=== PATIENT | male | born 1950 | race Caucasian/White ===

== ENCOUNTER 2023-03-18 20:47 | Observation (INO) | payer OTHER ==
[~2023-03-18] VITALS: Ht 190.5 cm; Wt 93.9 kg
[2023-03-18 21:02] LABS: BASOPHILS # (AUTO) 0.1 10^3/uL (0.0-0.1); BASOPHILS % (AUTO) 1 % (0-10); EOSINOPHILS # (AUTO) 0.4 10^3/uL (0.0-0.3); EOSINOPHILS % (AUTO) 4 % (0-10); HEMATOCRIT 40 % (40-54); HEMOGLOBIN 13.3 g/dL (13.3-17.7); LYMPHOCYTES # (AUTO) 2.4 10^3/uL (1.0-4.0); LYMPHOCYTES % (AUTO) 27 % (12-44); MEAN CORPUSCULAR HEMOGLOBIN 31 pg (25-34); MEAN CORPUSCULAR HGB CONC 33 g/dL (32-36); MEAN CORPUSCULAR VOLUME 94 fL (80-99); MEAN PLATELET VOLUME 9.7 fL (9.0-12.2); MONOCYTES # (AUTO) 0.5 10^3/uL (0.0-1.0); MONOCYTES % (AUTO) 6 % (0-12); NEUTROPHILS # (AUTO) 5.5 10^3/uL (1.8-7.8); NEUTROPHILS % (AUTO) 62 % (42-75); PLATELET COUNT 221 10^3/uL (130-400)
[2023-03-18 21:13] LABS: CHLORIDE 102 MMOL/L (98-107); POTASSIUM 4.3 MMOL/L (3.6-5.0); PROTHROMBIN TIME PATIENT 13.3 SEC (12.2-14.7); SODIUM 134 MMOL/L (135-145)
[2023-03-18 21:14] LABS: CALCIUM 8.7 MG/DL (8.5-10.1); PARTIAL THROMBOPLASTIN TIME 30 SEC (24-35)
[2023-03-18 21:15] LABS: GLUCOSE 196 MG/DL (70-105); TOTAL PROTEIN 6.8 GM/DL (6.4-8.2)
[2023-03-18 21:16] LABS: CARBON DIOXIDE 25 MMOL/L (21-32)
[2023-03-18 21:17] LABS: BILIRUBIN,TOTAL 0.5 MG/DL (0.1-1.0)
[2023-03-18 21:19] LABS: ALKALINE PHOSPHATASE 65 U/L (40-136); CREATININE SERUM 1.33 MG/DL (0.60-1.30); GFR ESTIMATED 56
[2023-03-18 21:20] LABS: BUN/CREATININE RATIO 14; FIBRIN DEGRADATION PRODUCTS < 0.27 UG/ML (0.00-0.49)
[2023-03-18 21:22] LABS: ALANINE AMINOTRANSFERASE 13 U/L (0-55); MAGNESIUM 1.9 MG/DL (1.6-2.4)
--- NOTE | 2023-03-18 21:23 | Diagnostic Imaging Report ---
PROCEDURE: CT head wo r/o stroke. TECHNIQUE: Multiple contiguous axial images were obtained through the brain without the use of intravenous contrast. Auto Exposure Controls were utilized during the CT exam to meet ALARA standards for radiation dose reduction. INDICATION: 72-year-old male presents to the Emergency Room with strokelike symptoms including slurred speech and facial droop. COMPARISONS: None FINDINGS: Midline structures are not displaced. Lateral, 3rd, and 4th ventricles are normal in size, shape and anatomic position. There is no mass, mass effect, hydrocephalus or hemorrhage. Ward-white differentiation is normal. There is no sulcal effacement. There are no abnormal extra-axial fluid collections or hemorrhage. Basilar cisterns appear normal. Sinuses, orbits and mastoid air cells are normal. Bone windows showed no calvarial changes. IMPRESSION: Unremarkable nonenhanced CT brain. Dictated by: Dictated on workstation # [id number]
--- NOTE | 2023-03-18 21:24 | Diagnostic Imaging Report ---
INDICATION: Strokelike symptoms. COMPARISON: None. FINDINGS: Single view of the chest shows normal heart, pleura and diaphragms. Some background chronic parenchymal changes are seen. No consolidation is seen. There is no effusion or pneumothorax. IMPRESSION: Chronic parenchymal changes but no acute cardiopulmonary disease. Dictated by: Dictated on workstation # [id number]
--- NOTE | 2023-03-18 21:38 | ED Neurological Problem ---
General Chief Complaint: Neuro-Stroke Like Symptoms Stated Complaint: SLURRED SPEECH, DROOPY FACE Nursing Triage Note: TO ED VIA POV AND AMBULATORY TO ROOM 5. PT C/O LEFT SIDE HEADACHE SINCE [id number] TODAY. PER GRANDDAUGHTER SHE NOTICIED "DROOPY FACE AND SLUMPING OVER" WHEN SHE GOT HOME FROM WORK AT APPROX 1830. STATES SOMETIME AROUND 1400 TODAY HE WAS HAVING TROUBLE REMEMBERING THE NAMES OF THEIR CHILDREN. PT IS ALERT AND ORIENTED ON ARRIVAL. PT DOES SEEM TO HAVE TROUBLE FINDING THE WORDS FOR THINGS. PT IS VERY [place]. PT ALERT TO NAME, , KNOWS TOMORROW IS THANKSGIVING, DOES HAVE TROUBLE STATING THE YEAR. HX DM, HTN. [facility] [place] [place]. Source: spouse Exam Limitations: other (PT UNABLE TO GIVE ANY RELIABLE INFORMATION ABOUT CURRENT SYMPTOMS) History of Present Illness Date Seen by Provider: Mar 18, 2023 Time Seen by Provider: 20:50 Initial Comments PT ARRIVES VIA POV FROM HOME WITH AND MULTIPLE FAMILY MEMBERS PT WALKS IN ON HIS OWN WITHOUT DIFFICULTY PT STATES HE HAD LEFT SIDED HEADACHE SINCE AROUND 10 AM TODAY STATES SHE NOTICED AROUND 1400 TODAY, THAT PT WAS CONFUSED AND COULDN'T REMEMBER ANY OF THEIR CHILDREN'S OR GRANDCHILDREN'S NAMES GRAND DAUGHTER GOT HOME FROM WORK TONIGHT AT 1830, AND NOTICED THAT THE RIGHT SIDE OF HIS FACE LOOKED "DROOPY" AND THAT HE WAS "SLUMPING OVER" TO THE RIGHT STATES HE HAS NOT HAD ANY SLURRED SPEECH AT ANY TIME TODAY, AND SHE STATES THAT HE HAS NOT HAD ANY PROBLEMS WALKING TODAY STATES HE HAS NOT BEEN SICK IN ANY WAY RECENTLY PT DENIES CHANGES IN VISION DENIES DIZZINESS DENIES CHEST PAIN OR SHORTNESS OF BREATH DENIES NAUSEA/VOMITING DENIES NUMBNESS OR TINGLING ANYWHERE PT IS DIABETIC AND HAS HTN HE HAS TAKEN HIS MEDICATIONS TODAY TOOK TYLENOL EARLIER TODAY FOR HIS HEADACHE HE IS NOT ON ASPIRIN OR BLOOD THINNERS NO HISTORY OF HEART DISEASE OR STROKES/TIA'S PCP: [facility] IN [facility] Allergies and Home Medications Allergies Coded Allergies: No Known Drug Allergies (Unverified , 03/18/23) Patient Home Medication List Home Medication List Reviewed: Yes Review of Systems Review of Systems Constitutional: no symptoms reported Eyes: No Symptoms Reported Ears, Nose, Mouth, Throat: see HPI Respiratory: no symptoms reported Cardiovascular: no symptoms reported Gastrointestinal: no symptoms reported Genitourinary: no symptoms reported Musculoskeletal: no symptoms reported Skin: no symptoms reported Psychiatric/Neurological: See HPI Endocrine: No Symptoms Reported Hematologic/Lymphatic: No Symptoms Reported Past [id number]-[id number]-Wemxfr Hx Patient Social History Tobacco Use?: Yes Smoking Status: Former Smoker Smokeless Tobacco Frequency: Current Everyday User Substance use?: No Alcohol Use?: No Immunizations Up To Date Influenza Vaccine Up-to-Date: No; Not Current Past Medical History Surgeries: No Respiratory: No Cardiac: Yes Hypertension Neurological: No Genitourinary: No Gastrointestinal: No Musculoskeletal: No Endocrine: Yes Diabetes, Non-Insulin dep HEENT: No Hearing Impairment: Hard of Hearing Cancer: No Psychosocial: No Integumentary: No Blood Disorders: No Physical Exam Vital Signs Vital Signs - First Documented 03/18/23 20:48 Temp 36.9 Pulse 93 Resp 16 B/P (MAP) 147/90 (109) Pulse Ox 97 O2 Delivery Room Air Capillary Refill : Less Than 3 Seconds Height, Weight, BMI Height: '" Weight: lbs. oz. kg; 29.00 BMI Method: General Appearance: WD/WN, no apparent distress HEENT: PERRL/EOMI, normal ENT inspection, TMs normal, pharynx normal Neck: non-tender, full range of motion, supple, normal inspection Respiratory: normal breath sounds, no respiratory distress, no accessory muscle use Cardiovascular: regular rate, rhythm, no murmur Peripheral Pulses: 2+ Dorsalis Pedis (R), 2+ Left Dors-Pedis (L), 2+ Radial Pulses (R), 2+ Radial Pulses (L) Gastrointestinal: normal bowel sounds, non tender, soft Back: normal inspection Extremities: normal inspection, normal capillary refill Neurologic/Psychiatric: ldr nurse II-XII nml as tested, no motor/sensory deficits, alert, normal mood/affect, oriented x 3, other (PT DOES SEEM SOMEWHAT CONFUSED TO SITUATION, AND CONTINUES TO HAVE PROBLEMS WITH WORD FINDING, AND UNABLE TO STATE NAMES OF FAMILY) Crainal Nerves: normal speech, PERRL, other (HARD OF HEARING; SPEECH IS CLEAR) Coordination/Gait: normal finger to nose, normal gait, negative Romberg's sign Motor/Sensory: no motor deficit, no sensory deficit, no pronator drift Reflexes: 1+ Knee (R), 1+ Knee (L) Skin: normal color, warm/dry Stroke Onset of Symptoms Onset of Symptoms: No Symptoms onset unknown: Yes NIH Stroke Scale Assessment Level of Consciousness: 0=Alert (0), Level of Consciousness-Questions: 0=Answers both month/age (0), LOC Commands: 0=Performs both tasks (0), Visual Vega: 0=No visual loss (0), Facial Movement (Facial Paresis): 0=Normal symmetrical mnt (0), Motor Function-Arms Right: 0=No drift (0), Motor Function-Arms Left: 0=No drift (0), Motor Function-Legs Right: 0=No drift (0), Motor Function-Legs Left: 0=No drift (0), Limb Ataxia: 0=Absent (0), Sensory: 0=Normal:no loss (0), Best Language: 0=No aphasia (0), Dysarthria: 0=Normal (0), Extinction & Inattention: 0=No abnormality (0), Total: 0 Stroke Thrombolytic Exclusion Age 18 or Over: Yes Acute intenal hemorrhage: No History of CVA: No Uncontrolled Coagulation Defec: No Intracranial Hemorrhage: No Severe Hypertension: No GI or Bleed: No Subarachnoid Hemorrhage: No Intracranial Neoplasm/Aneurysm: No Oral Anticoagulants: No Surgery or Trauma: No Puncture of Non-Compressible V: No Recent CPR: No Diabetic Hemorrhagic Retinopat: No Organ Biopsy: No Recent Obstetric Delivery: No Glucose: No Significant Hepatic Dysfunctio: No NIH Stoke Scale >22: No Bacterial Endocarditis: No Pericarditis: No Improving Symptoms: No Platelets: No TPA Contraindication: No IV - TPa Received IV - TPa Procedure Performed?: No (NIH IS 0, ONSET OF SYMPTOMS IS INDETERMINATE, BUT AT LEAST > 6 HOURS) Progress/Results/Core Measures Results/Orders Lab Results Laboratory Tests Test 03/18/23 20:54 03/18/23 20:55 03/18/23 21:26 03/18/23 22:19 Range/Units Glucometer 191 H 70-110 MG/DL White Blood Count 9.0 4.3-11.0 10^3/uL Red Blood Count 4.25 L 4.30-5.52 10^6/uL Hemoglobin 13.3 13.3-17.7 g/dL Hematocrit 40 40-54 % Mean Corpuscular Volume 94 80-99 fL Mean Corpuscular Hemoglobin 31 25-34 pg Mean Corpuscular Hemoglobin Concent 33 32-36 g/dL Red Cell Distribution Width 12.4 10.0-14.5 % Platelet Count 221 130-400 10^3/uL Mean Platelet Volume 9.7 9.0-12.2 fL Immature Granulocyte % (Auto) 0 % Neutrophils (%) (Auto) 62 42-75 % Lymphocytes (%) (Auto) 27 12-44 % Monocytes (%) (Auto) 6 0-12 % Eosinophils (%) (Auto) 4 0-10 % Basophils (%) (Auto) 1 0-10 % Neutrophils # (Auto) 5.5 1.8-7.8 10^3/uL Lymphocytes # (Auto) 2.4 1.0-4.0 10^3/uL Monocytes # (Auto) 0.5 0.0-1.0 10^3/uL Eosinophils # (Auto) 0.4 H 0.0-0.3 10^3/uL Basophils # (Auto) 0.1 0.0-0.1 10^3/uL Immature Granulocyte # (Auto) 0.0 0.0-0.1 10^3/uL Prothrombin Time 13.3 12.2-14.7 SEC INR Comment 1.0 0.8-1.4 Activated Partial Thromboplast Time 30 24-35 SEC D-Dimer < 0.27 0.00-0.49 UG/ML Sodium Level 134 L 135-145 MMOL/L Potassium Level 4.3 3.6-5.0 MMOL/L Chloride Level 102 98-107 MMOL/L Carbon Dioxide Level 25 21-32 MMOL/L Anion Gap 7 5-14 MMOL/L Blood Urea Nitrogen 19 H 7-18 MG/DL Creatinine 1.33 H 0.60-1.30 MG/DL Estimat Glomerular Filtration Rate 56 BUN/Creatinine Ratio 14 Glucose Level 196 H 70-105 MG/DL Calcium Level 8.7 8.5-10.1 MG/DL Corrected Calcium 8.7 8.5-10.1 MG/DL Magnesium Level 1.9 1.6-2.4 MG/DL Total Bilirubin 0.5 0.1-1.0 MG/DL Aspartate Amino Transf (AST/SGOT) 17 5-34 U/L Alanine Aminotransferase (ALT/SGPT) 13 0-55 U/L Alkaline Phosphatase 65 40-136 U/L Troponin I < 0.028 <0.028 NG/ML Total Protein 6.8 6.4-8.2 GM/DL Albumin 4.0 3.2-4.5 GM/DL Urine Color YELLOW Urine Clarity CLEAR Urine pH 7.0 5-9 Urine Specific [place] 1.015 L 1.016-1.022 Urine Protein NEGATIVE NEGATIVE Urine Glucose (UA) 3+ H NEGATIVE Urine Ketones TRACE H NEGATIVE Urine Nitrite NEGATIVE NEGATIVE Urine Bilirubin NEGATIVE NEGATIVE Urine Urobilinogen 0.2 < = 1.0 MG/DL Urine Leukocyte Esterase NEGATIVE NEGATIVE Urine RBC (Auto) NEGATIVE NEGATIVE Urine RBC NONE /HPF Urine WBC RARE /HPF Urine Squamous Epithelial Cells NONE /HPF Urine Crystals NONE /LPF Urine Bacteria TRACE /HPF Urine Casts NONE /LPF Urine Mucus NEGATIVE /LPF Urine Culture Indicated NO Serum Alcohol < 10 <10 MG/DL My Orders Orders - RICH ALEXANDER DO Monitor-Rhythm Ecg Trace Only (03/18/23 20:50) Cbc And Automated Diff (03/18/23 20:50) Protime With Inr (03/18/23 20:50) Partial Thromboplastin Time (03/18/23 20:50) Comprehensive Metabolic Panel (03/18/23 20:50) Fibrin Degradation Products (03/18/23 20:50) Troponin I [place]min[place] (03/18/23 20:50) Ua Culture If Indicated (03/18/23 20:50) Chest 1 View, Ap/Pa Only (03/18/23 20:50) Ekg Tracing (03/18/23 20:50) Nothing By Mouth (03/19/23 Breakfast) Accucheck Stat ONCE (03/18/23 20:50) Ed Iv/Invasive Line Start (03/18/23 20:50) Ed Iv/Invasive Line Start (03/18/23 20:50) Vital Signs Stroke Patient Q15M (03/18/23 20:50) Ct Head Wo-R/O Stroke (03/18/23 20:50) O2 (03/18/23 20:50) Dysphagia Screening Tool Q10MX1 (03/18/23 20:50) Magnesium (03/18/23 20:50) End Tidal Co2 (03/18/23 21:20) Ct Angio Head/Neck (03/18/23 21:38) Ct Head Perfusion W/ Contrast (03/18/23 21:38) Ed Iv/Invasive Line Start (03/18/23 21:38) Ns Iv 1000 Ml (Ns Iv 1000 Ml) (03/18/23 21:45) Alcohol (03/18/23 22:14) Iohexol Injection (Omnipaque 350 Mg/Ml 1 (03/18/23 23:15) Received Contrast (Hold Metformin- Contr (03/18/23 23:15) Sodium Chloride Flush (Catheter Flush Sy (03/18/23 23:15) Ns (Ivpb) 250 Ml (Sodium Chloride 0.9% 2 (03/18/23 23:15) Medications Given in ED Current Medications Medications Dose Ordered Sig/Patricia Route Start Time Stop Time Status Last Admin Dose Admin Iohexol 150 ml ONCE ONCE IV 03/18/23 23:15 03/18/23 23:16 DC 03/18/23 23:08 120 ML Sodium Chloride 10 ml NEEDED PRN IV 03/18/23 23:15 03/18/23 23:09 10 ML Sodium Chloride 250 ml ONCE ONCE IV 03/18/23 23:15 03/18/23 23:16 DC 03/18/23 23:08 120 ML Vital Signs/I&O 03/18/23 03/18/23 03/19/23 20:48 20:48 00:29 Temp 36.9 36.9 Pulse 93 82 Resp 16 16 B/P (MAP) 147/90 (109) 115/52 Pulse Ox 97 94 O2 Delivery Room Air Room Air Room Air Blood Pressure Mean: 109 FSBG Bedside Testing Finger Stick Blood Glucose: 191 Blood Glucose Action Taken: dr alexander notified Progress Progress Note : Progress Note VITALS STABLE LABS: -CBC NORMAL -CMP WITH NA 134, BUN 19, CR 1.33, GLU 196 -MG NORMAL -TROPONIN NEGATIVE -PT/PTT/INR NORMAL -D-DIMER NEGATIVE -UA WITH 3+ GLUCOSE, TRACE KETONES CT SCANS UNREMARKABLE CXR UNREMARKABLE EKG WITH LBBB NO DETERIORATION IN PT'S CONDITION VITALS STABLE NO DETERIORATION OR IMPROVEMENT IN PT'S CONDITION. DISCUSSED TEST RESULTS, NEED FOR ADMIT AND PT AND FAMILY AGREE NO PRIOR VISITS HERE Initial ECG Impression Date: Mar 18, 2023 Initial ECG Impression Time: 20:59 Initial ECG Rate: 88 Initial ECG Rhythm: Normal Sinus (LBBB) Initial ECG Intervals CO 184 QRS 144 QT/QTC 393/438 Initial ECG Comparisson: No Previous ECG Available Comment INTERPRETED BY ME Diagnostic Imaging Comments CXR--PER RADIOLOGIST REPORT AT 2137 FINDINGS: Single view of the chest shows normal heart, pleura and diaphragms. Some background chronic parenchymal changes are seen. No consolidation is seen. There is no effusion or pneumothorax. IMPRESSION: Chronic parenchymal changes but no acute cardiopulmonary disease. CT HEAD--PER RADIOLOGIST REPORT AT 2137 FINDINGS: Midline structures are not displaced. Lateral, 3rd, and 4th ventricles are normal in size, shape and anatomic position. There is no mass, mass effect, hydrocephalus or hemorrhage. Ward-white differentiation is normal. There is no sulcal effacement. There are no abnormal extra-axial fluid collections or hemorrhage. Basilar cisterns appear normal. Sinuses, orbits and mastoid air cells are normal. Bone windows showed no calvarial changes. IMPRESSION: Unremarkable nonenhanced CT brain. CT ANGIOGRAM HEAD/NECK--PER [facility] VIA FAX AT 2322 AND VIA PHONE AT 2338 -NO LARGE VESSEL OCCLUSION OR ANEURYSM -NO ACUTE FINDINGS -NO SIGNIFICANT CAROTID STENOSIS CT BRAIN PERFUSION--PER [facility] VIA FAX AT 2336 AND VIA PHONE AT 2338 -NO ACUTE INFARCT Reviewed: Reviewed by Me, Discussed w/Radiologist Departure Communication (Admissions) 2340--SPOKE WITH DR. PEREZ, HOSPITALIST, ACCEPTS PT FOR ADMIT Impression Primary Impression: Stroke-like symptoms Additional Impressions: Confusion Word finding difficulty HTN (hypertension) Diabetes mellitus LBBB (left bundle branch block) Disposition: ADMITTED INPATIENT Condition: Stable Admissions Decision to Admit Reason: Admit from ER (General) Decision to Admit/Date: Mar 18, 2023 Time/Decision to Admit Time: 23:45 RICH ALEXANDER DO Mar 18, 2023 21:38
[2023-03-18 21:45] LABS: BACTERIA,URINE TRACE /HPF; BILIRUBIN,URINE NEGATIVE (NEGATIVE); CLARITY,URINE CLEAR; COLOR,URINE YELLOW; GLUCOSE, URINE (UA) 3+ (NEGATIVE); KETONES,URINE TRACE (NEGATIVE); LEUKOCYTE ESTERASE ,URINE NEGATIVE (NEGATIVE); NITRITE,URINE NEGATIVE (NEGATIVE); PROTEIN,URINE NEGATIVE (NEGATIVE); WBC,URINE RARE /HPF
[2023-03-18] MEDS ORDERED: NS IV 1000 ML 1,000 ML IV SCH (21:45)
[2023-03-18] MEDS ORDERED: IOHEXOL 350 MG/ML 150 ML (OMNIPAQUE 350) VIAL IV ONE (23:15)
[2023-03-18] MEDS ORDERED: NS 250 ML (IVPB) BAG IV ONE (23:15)
[2023-03-18] MEDS ORDERED: HOLD METFORMIN - RECEIVED CONTRAST 20 ML VIAL IV SCH (23:15)
[2023-03-18] MEDS ORDERED: CATHETER FLUSH 10 ML SYR IV PRN (23:15)
[2023-03-19] VITALS (16 sets, daily range): BP systolic 99–126; BP diastolic 50–86
[2023-03-19] MEDS ORDERED: NS IV 1000 ML 1,000 ML IV SCH (01:30)
[2023-03-19 04:53] LABS: BASOPHILS # (AUTO) 0.1 10^3/uL (0.0-0.1); BASOPHILS % (AUTO) 1 % (0-10); EOSINOPHILS # (AUTO) 0.4 10^3/uL (0.0-0.3); EOSINOPHILS % (AUTO) 5 % (0-10); HEMATOCRIT 35 % (40-54); HEMOGLOBIN 11.8 g/dL (13.3-17.7); LYMPHOCYTES # (AUTO) 3.2 10^3/uL (1.0-4.0); LYMPHOCYTES % (AUTO) 37 % (12-44); MEAN CORPUSCULAR HEMOGLOBIN 32 pg (25-34); MEAN CORPUSCULAR HGB CONC 34 g/dL (32-36); MEAN CORPUSCULAR VOLUME 94 fL (80-99); MEAN PLATELET VOLUME 10.1 fL (9.0-12.2); MONOCYTES # (AUTO) 0.7 10^3/uL (0.0-1.0); MONOCYTES % (AUTO) 8 % (0-12); NEUTROPHILS # (AUTO) 4.2 10^3/uL (1.8-7.8); NEUTROPHILS % (AUTO) 49 % (42-75); PLATELET COUNT 205 10^3/uL (130-400); WHITE BLOOD COUNT 8.6 10^3/uL (4.3-11.0)
[2023-03-19 05:12] LABS: CALCIUM 8.2 MG/DL (8.5-10.1); CREATININE SERUM 1.16 MG/DL (0.60-1.30); POTASSIUM 4.3 MMOL/L (3.6-5.0)
[2023-03-19] MEDS: inSUlin ASPART 1 UNIT/0.01 ML (PER UNIT) SC SCH ×2 (05:14→11:49)
--- NOTE | 2023-03-19 06:58 | Diagnostic Imaging Report ---
CLINICAL INDICATIONS: The patient complains of left-sided headache since 10 to 11 AM yesterday. Granddaughter noticed patient had a "droopy face." EXAMS: 1: Head CT with contrast. CT angiogram of the head and neck performed with 100 cc of Omnipaque 350 IV contrast. Sagittal and coronal MIP reformations were created for better visualization of vascular anatomy. 2: CT perfusion of the brain. Multiple perfusion maps were obtained including relative CBV, relative CBF, MTT, and Tmax. CT angiogram was post-processed using RAPID LVO detection to include quantitative measurements of cerebral blood flow and automated results notification to the stroke and/or neurointerventional team. COMPARISON: Head CT without contrast dated 03/18/2023. FINDINGS: HEAD CT: There is stable appearance of the brain parenchyma with no interval evidence of acute intracranial process. There is no abnormal IV contrast enhancement. 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 The brain parenchymal volume appears appropriate for patient's age. There is normal rosa-white matter distinction. There is no hydrocephalus, brain herniation or midline shift. Basal cisterns are unremarkable. The extracranial soft tissue, skull, and orbits are unremarkable. There is mild mucosal thickening involving both maxillary sinuses and ethmoid sinus. Mastoid air cells are clear. CT ANGIOGRAM: There is dense contrast bolus seen within the left subclavian vein, innominate vein and superior vena cava. Three-vessel aortic arch is seen. The brachiocephalic artery and bilateral subclavian artery are patent. The right common carotid artery, right ECA and cervical right ICA are patent. There is atherosclerotic disease involving the distal left common carotid artery/bifurcation region with no significant stenosis. There is atherosclerotic disease involving the origin of the cervical left ICA bulb with roughly 40-50% stenosis. The remainder of the cervical left ICA is patent. The left ECA is patent. The petrous, cavernous, and supraclinoid ICA are patent. The bilateral ACAs and distal branches are patent. The bilateral MCAs and distal branches are patent. Dominant right cervical vertebral artery is seen. The bilateral cervical vertebral arteries are patent. The bilateral intradural vertebral arteries are patent. The bilateral PICAs are patent. The basilar artery, bilateral superior cerebellar arteries, and bilateral director paid media and distal branches are patent. The dural venous sinuses are patent. There are multiple small nonobstructive stones involving the right parotid gland. The visualized upper lung arceo are clear. There are small cervical spine vertebral body spurs. CT PERFUSION OF THE BRAIN: The multiple perfusion maps are relatively symmetric with no evidence of significant brain perfusion mismatch or other significant intracranial flow abnormality/ defect. There is note of roughly 32 mL of Tmax greater than 4 seconds involving the left parietal and occipital region. There is no parenchymal volume demonstrating rCBF greater than 30% or Tmax greater than 6 seconds. There is no vascular abnormality seen on the CTA in this region of the brain parenchyma. IMPRESSION: 1: There is no CT evidence of acute intracranial process. There is no abnormal IV contrast enhancement. 2: CT angiogram of the [place] and neck showed no enlarged vessel occlusion or intravascular thrombus. There is no aneurysm or vascular malformation. 3: There is roughly 40-50% stenosis involving the origin of the cervical left ICA. There is no significant vascular stenosis seen on this exam. 4: There is no significant brain perfusion mismatch seen on this CT brain perfusion portion of this exam. I agree with the [facility] report. The results of this report were called to Dr. Sotomayor on 03/18/2023 at 2330 by the [facility] radiologist. Dictated by: Dictated on workstation # [id number]
[2023-03-19] MEDS ORDERED: ASPIRIN enteric coated 81MG TABLET PO SCH (09:00)
--- NOTE | 2023-03-19 11:14 | Diagnostic Imaging Report ---
Clinical indications: Patient with stroke-like symptoms. The patient complains of left-sided headache. Granddaughter noticed "droopy face." The patient has left eye burning and a history of hypertension. Exam: MRI of the brain performed without IV contrast. Sequences include axial DWI, ADC map, axial T1, axial T2, axial FLAIR, coronal gradient echo, and sagittal T1. Comparison: CT angiogram of the head/neck dated 03/18/2023.. Findings: There is no evidence of acute cerebral infarct, intracranial hemorrhage, or gross mass effect. The brain parenchymal volume appears appropriate for patient's age. There are multiple focal areas of high T2 signal white matter changes involving both cerebral hemispheres. There is normal guajardo-white matter distinction. There is no significant midline shift or herniation. There is no evidence of hydrocephalus. The basal cisterns are unremarkable. The skull, extracranial soft tissue, and orbits are unremarkable. There is mild mucosal thickening involving both maxillary sinuses, frontal sinus, ethmoid sinus and sphenoid sinus. Temporal bones show no significant abnormality. IMPRESSION: 1: There is no evidence of acute intracranial process. 2: There is mild age-related brain parenchymal changes including mild chronic small vessel ischemic disease. 3: There is mild paranasal sinus disease. Dictated by: Dictated on workstation # [id number]
--- NOTE | 2023-03-19 13:11 | History & Physicial-Cardiolgy ---
HPI-Cardiology Cardiology Consultation: Date of Consultation 03/19/23 Date of Admission 03/18/2023 Attending Physician Adali,Local Physician Admitting Physician Admitting Physician: Ginna Lawler MD Attending Physician: Ginna Lawler MD Consulting Physician RAYMON CHAVEZ MD HPI: Time Seen by a Provider: 12:20 Chief Complaint: Admitted with complaining of mental status changes, mouth droop, left-sided headache. Patient was noted to have above symptoms yesterday. He was also unable to recall the names of his family members. Presently denies any complaints. Denies any history of heart problem other than hypertension Review of Systems-Cardiology Review of Systems Constitutional: no symptoms reported Eyes: no symptoms reported Ears/Nose/Throat: no symptoms reported Respiratory: no symptoms reported Cardiovascular: no symptoms reported Gastrointestinal: no symptoms reported Genitourinary: no symptoms reported Musculoskeletal: no symptoms reported Skin: no symptoms reported Psychiatric/Neurological: As described under HPI Hematologic: no symptoms reported GEA-Zwyhmq-[id number] Hx Patient Social History Smoking Status: Former Smoker Alcohol Use?: No Pt feels they are or have been: No Past Medical History PMH As described under Assessment. Allergies and Home Medications Allergies Coded Allergies: No Known Drug Allergies (Unverified , 03/18/23) Patient Home Medication List Home Medication List Reviewed: Yes Physical Exam-Cardiology Physical Exam Vital Signs/I&O 03/19/23 03/19/23 03/19/23 03/19/23 01:11 01:13 01:15 01:30 Temp 37.8 Pulse 88 88 87 92 Resp 17 21 20 B/P (MAP) 123/66 (85) 99/63 (75) 112/63 (79) Pulse Ox 93 94 93 O2 Delivery Room Air Room Air Room Air 03/19/23 03/19/23 03/19/23 03/19/23 01:45 02:00 02:15 02:30 Pulse 72 74 78 80 Resp 20 34 34 34 B/P (MAP) 108/50 (69) 119/52 (74) 117/55 (75) 119/51 (73) Pulse Ox 93 93 93 93 O2 Delivery Room Air Room Air Room Air Room Air 03/19/23 03/19/23 03/19/23 03/19/23 02:45 03:00 03:15 03:30 Pulse 80 75 84 75 Resp 34 34 34 34 B/P (MAP) 110/52 (71) 126/57 (80) 107/65 (79) 122/62 (82) Pulse Ox 92 90 91 90 O2 Delivery Room Air Room Air Room Air Room Air 03/19/23 03/19/23 03/19/23 03/19/23 03:45 04:00 04:10 07:00 Pulse 72 77 69 Resp 34 B/P (MAP) 123/66 (85) 114/66 (82) Pulse Ox 91 94 O2 Delivery Room Air Room Air Room Air 03/19/23 03/19/23 03/19/23 03/19/23 07:29 08:00 11:32 11:53 Temp 36.8 36.3 36.5 Pulse 71 53 126 Resp 15 16 22 B/P (MAP) 121/61 (81) 116/70 (85) 110/86 (94) Pulse Ox 91 97 98 O2 Delivery Room Air Room Air Room Air NIV Bilevel O2 Flow Rate 30.00 03/19/23 12:42 Pulse 54 03/18/23 23:59 Intake Total 1000 ml Balance 1000 ml Capillary Refill : Less Than 3 Seconds Constitutional: appears stated age, AAO x 3 HEENT: PERRL Neck: non-tender, supple Respiratory: chest expansion is symmetric, lungs clear to auscultation Cardiovascular: regular rate-rhythm, S1 and S2 Gastrointestinal: soft, round Rectal: deferred Extremities: normal range of motion, no lower extremity edema bilateral Neurologic/Psychiatric: alert, normal mood/affect, oriented x 3, facial droop (Right side of the mouth) Skin: normal color Lymphatic: no adenopathy Data Review Labs Laboratory Tests 03/18/23 20:54: Glucometer 191H 03/18/23 20:55: White Blood Count 9.0, Red Blood Count 4.25L, Hemoglobin 13.3, Hematocrit 40, Mean Corpuscular Volume 94, Mean Corpuscular Hemoglobin 31, Mean Corpuscular Hemoglobin Concent 33, Red Cell Distribution Width 12.4, Platelet Count 221, M obdulia Platelet Volume 9.7, Immature Granulocyte % (Auto) 0, Neutrophils (%) (Auto) 62, Lymphocytes (%) (Auto) 27, Monocytes (%) (Auto) 6, Eosinophils (%) (Auto) 4, Basophils (%) (Auto) 1, Neutrophils # (Auto) 5.5, Lymphocytes # (Auto) 2.4, Monocytes # (Auto) 0.5, Eosinophils # (Auto) 0.4H, Basophils # (Auto) 0.1, Immature Granulocyte # (Auto) 0.0, Prothrombin Time 13.3, INR Comment 1.0, Activated Partial Thromboplast Time 30, D-Dimer < 0.27, Sodium Level 134L, Potassium Level 4.3, Chloride Level 102, Carbon Dioxide Level 25, Anion Gap 7, Blood Urea Nitrogen 19H, Creatinine 1.33H, Estimat Glomerular Filtration Rate 56, BUN/Creatinine Ratio 14, Glucose Level 196H, Calcium Level 8.7, Corrected Calcium 8.7, Magnesium Level 1.9, Total Bilirubin 0.5, Aspartate Amino Transf (AST/SGOT) 17, Alanine Aminotransferase (ALT/SGPT) 13, Alkaline Phosphatase 65, Troponin I < 0.028, Total Protein 6.8, Albumin 4.0 03/18/23 21:26: Urine Color YELLOW, Urine Clarity CLEAR, Urine pH 7.0, Urine Specific [place] 1.015L, Urine Protein NEGATIVE, Urine Glucose (UA) 3+H, Urine Ketones TRACEH, Urine Nitrite NEGATIVE, Urine Bilirubin NEGATIVE, Urine Urobilinogen 0.2, Urine Leukocyte Esterase NEGATIVE, Urine RBC (Auto) NEGATIVE, Urine RBC NONE, Urine WBC RARE, Urine Squamous Epithelial Cells NONE, Urine Crystals NONE, Urine Bacteria TRACE, Urine Casts NONE, Urine Mucus NEGATIVE, Urine Culture Indicated NO 03/18/23 22:19: Serum Alcohol < 10 03/19/23 01:48: Glucometer 127H 03/19/23 04:45: White Blood Count 8.6, Red Blood Count 3.75L, Hemoglobin 11.8L, Hematocrit 35L, Mean Corpuscular Volume 94, Mean Corpuscular Hemoglobin 32, Mean Corpuscular Hemoglobin Concent 34, Red Cell Distribution Width 12.5, Platelet Count 205, Mean Platelet Volume 10.1, Immature Granulocyte % (Auto) 0, Neutrophils (%) (Auto) 49, Lymphocytes (%) (Auto) 37, Monocytes (%) (Auto) 8, Eosinophils (%) (Auto) 5, Basophils (%) (Auto) 1, Neutrophils # (Auto) 4.2, Lymphocytes # (Auto) 3.2, Monocytes # (Auto) 0.7, Eosinophils # (Auto) 0.4H, Basophils # (Auto) 0.1, Immature Granulocyte # (Auto) 0.0, Sodium Level 137, Potassium Level 4.3, Chloride Level 107, Carbon Dioxide Level 20L, Anion Gap 10, Blood Urea Nitrogen 15, Creatinine 1.16, Estimat Glomerular Filtration Rate 66, BUN/Creatinine Ratio 13, Glucose Level 128H, Calcium Level 8.2L 03/19/23 07:33: 03/19/23 11:30: Glucometer 187H Radiology Date of Exam:03/19/23 MRI BRAIN W/O CONTRAST Clinical indications: Patient with stroke-like symptoms. The patient complains of left-sided headache. Granddaughter noticed "droopy face." The patient has left eye burning and a history of hypertension. Exam: MRI of the brain performed without IV contrast. Sequences include axial DWI, ADC map, axial T1, axial T2, axial FLAIR, coronal gradient echo, and sagittal T1. Comparison: CT angiogram of the head/neck dated 03/18/2023.. Findings: There is no evidence of acute cerebral infarct, intracranial hemorrhage, or gross mass effect. The brain parenchymal volume appears appropriate for patient's age. There are multiple focal areas of high T2 signal white matter changes involving both cerebral hemispheres. There is normal guajardo-white matter distinction. There is no significant midline shift or herniation. There is no evidence of hydrocephalus. The basal cisterns are unremarkable. The skull, extracranial soft tissue, and orbits are unremarkable. There is mild mucosal thickening involving both maxillary sinuses, frontal sinus, ethmoid sinus and sphenoid sinus. Temporal bones show no significant abnormality. IMPRESSION: 1: There is no evidence of acute intracranial process. 2: There is mild age-related brain parenchymal changes including mild chronic small vessel ischemic disease. 3: There is mild paranasal sinus disease. A/P-Cardiology Assessment/Admission Diagnosis Mental status change. Hypertension Admission Status: Observation Plan Will check EKG, echo. Continue present medications Start statins Clinical Quality Measures Stroke: Symptoms onset unknown: Yes RAYMON CHAVEZ MD Mar 19, 2023 13:11
[2023-03-19] MEDS ORDERED: SIMV80TA21 PO (13:12)
[2023-03-19] MEDS ORDERED: EMPA25TA PO (13:12)
[2023-03-19] MEDS ORDERED: ASPI-1238 PO (13:12)
[2023-03-19] MEDS ORDERED: METF-399 PO (13:12)
[2023-03-19] MEDS ORDERED: ENAL-70 PO (13:12)
--- NOTE | 2023-03-19 20:12 | Short Stay Summary-Hospitalist ---
History of Present Illness HPI/Chief Complaint Kaci Baker is a 72 year old male with PMH HTN, T2DM, HLD, who was admitted with stroke like symptoms. He was having a headache. His family thought he had some facial droop. He was reportedly confused and having word finding difficulty. He was not having any weakness. Upon my exam, all his symptoms have resolved. He is no longer confused. He is not having any speech trouble. He denies swallowing trouble. He is not having any weakness. He denies chest pain and shortness of breath. He denies fevers. He denies abdominal pain. He takes aspirin and a statin. Source: patient Exam Limitations: no limitations Date Seen 03/19/23 Time Seen by a Provider: 12:15 Attending Physician No,Local Physician PCP Admitting Physician: Ginna Perez MD Attending Physician: Ginna Perez MD Referring Physician Date of Admission Mar 19, 2023 at 00:57 Home Medications & Allergies Home Medications Reviewed patient Home Medication Reconciliation performed by pharmacy medication reconciliations biological science technician fish and/or nursing. Patients Allergies have been reviewed. Allergies Allergies Coded Allergies No Known Drug Allergies (Diemfnjaws13/22/23) Past Cpzztkz-Gmxttq-Qjfpus Hx Patient Social History Tobacco Use?: Yes Smoking Status: Former Smoker Smokeless type used: Chew Smokeless Tobacco Frequency: Current Someday User Use of E-Cig and/or Vaping dev: No Substance use?: No Alcohol Use?: No Pt feels they are or have been: No Immunizations Up To Date Tetanus Booster (TDap): Unknown Hepatitis A: No Hepatitis B: No Current Status Advance Directives: No Communicates: Verbally Primary Language: [place] Preferred Spoken Language: [place] Is interpretation needed?: No Implanted or Applied Medical D: None Past Medical History Hypertension Diabetes, Non-Insulin dep Hearing Impairment: Hard of Hearing Blood Disorders: No Family Medical History No Pertinent Family Hx Review of Systems Constitutional: no symptoms reported Respiratory: no symptoms reported Cardiovascular: no symptoms reported Gastrointestinal: no symptoms reported Physical Exam Physical Exam Vital Signs Vital Signs - First Documented 03/18/23 03/19/23 20:48 11:53 Temp 36.9 Pulse 93 Resp 16 B/P (MAP) 147/90 (109) Pulse Ox 97 O2 Delivery Room Air O2 Flow Rate 30.00 Capillary Refill : Less Than 3 Seconds Height, Weight, BMI Height: '" Weight: lbs. oz. kg; 25.87 BMI Method: General Appearance: No Apparent Distress, WD/WN HEENT: PERRL/EOMI, Pharynx Normal Neck: Normal Inspection, Supple Respiratory: Lungs Clear, Normal Breath Sounds, No Respiratory Distress Cardiovascular: Regular Rate, Rhythm, No Edema, No Murmur Gastrointestinal: Normal Bowel Sounds, Non Tender, Soft Extremity: Normal Inspection, No Pedal Edema Neurologic/Psychiatric: Alert, Oriented x3, No Motor/Sensory Deficits, Normal Mood/Affect, pbx mechanic II-XII Norm as Tested Skin: Normal Color, Warm/Dry Results Results/Procedures Labs Laboratory Tests 03/18/23 20:55 03/19/23 04:45 Patient resulted labs reviewed. Imaging: Reviewed Imaging Report Short Stay Diagnosis Discharge Diagnosis-Short Stay Admission Diagnosis Stroke like symptoms Final Discharge Diagnosis Possible TIA Conclusion Plan Stroke like symptoms Possible TIA HTN T2DM HLD CT head negative MRI brain with no acute abnormalities CTA with mild carotid stenosis EKG with normal sinus rhythm, LBBB Echo unavailable, will complete outpatient Symptoms resolved Continue ASA and statin Follow up with your PCP at [facility] in about a week Diagnosis/Problems Diagnosis/Problems (1) Stroke-like symptoms Status: Acute (2) TIA (transient ischemic attack) Status: Acute (3) HTN (hypertension) Status: Acute (4) Diabetes mellitus Status: Acute (5) LBBB (left bundle branch block) Status: Acute Clinical Quality Measures Stroke: Symptoms onset unknown: Yes GINNA PEREZ MD Mar 19, 2023 20:12
== END 2023-03-19 13:30 | disposition home or self-care (01) ==
LOC: EDUNIT# 20:47 → ER 20:51 → CSD 03-19 00:57
PROVIDERS: ADMIT Internal Medicine; ATTEND Internal Medicine
DX: R41.82 Altered mental status, unspecified (principal); I10 Essential (primary) hypertension; E11.9 Type 2 diabetes mellitus without complications; E78.5 Hyperlipidemia, unspecified; I44.7 Left bundle-branch block, unspecified; R47.01 Aphasia; Z87.891 Personal history of nicotine dependence
CPT/HCPCS: 0042T; 36415; 70450; 70496; 70498; 70551; 71045; 80048; 80053; 80320; 81000; 82947; 83735; 84484; 85025; 85379; 85610; 85730; 93005; 93041; 96372